=== PATIENT | female | born 1990 | race Hispanic/Latino ===

== ENCOUNTER 2021-04-15 16:44 | Day surgery (SDC) | payer OTHER ==
[2021-04-15 17:31] VITALS: BMI 48.9
[2021-04-15] MEDS ORDERED: Lactated Ringer's 1,000 ML IV SCH (18:45)
== END 2021-04-15 21:10 | disposition home or self-care (01) ==
LOC: CSHLD/OP 16:44
PROVIDERS: ATTEND Family Medicine
DX: O36.8330 Maternal care for abnormalities of the fetal heart rate or rhythm, third trimester, not applicable or unspecified (principal); O09.33 Supervision of pregnancy with insufficient antenatal care, third trimester; O34.211 Maternal care for low transverse scar from previous cesarean delivery; O99.213 Obesity complicating pregnancy, third trimester; Z3A.35 35 weeks gestation of pregnancy
CPT/HCPCS: 76819; 96360; 96361; 99282